=== PATIENT | female | born 1930 | race Hispanic/Latino ===

== ENCOUNTER → 2017-04-29 | Outpatient (CLI) | payer MEDICARE ==
[~2017-04-29] MED LIST: AEC81 PO; BENA20TA3 PO; CARV3.1262 PO; HYDR-2132 PO; LEVO50TA4 PO; NITR.4P TD; SIMV20TA6 PO; WARF2.5T85 PO
== END | disposition home or self-care (01) ==
LOC: RAH 12:45
PROVIDERS: ATTEND Internal Medicine Endocrinology, Diabetes & Metabolism
DX: E04.2 Nontoxic multinodular goiter (principal)
CPT/HCPCS: 76536